=== PATIENT | female | born 1960 | race Caucasian/White ===

== ENCOUNTER 2016-09-23 09:01 | Emergency (ER) | payer BC ==
[2016-09-23 09:18] VITALS: BP 130/86; PULSE 70; RESP 16; TEMP 97.9; O2SAT 97
--- NOTE | 2016-09-23 09:40 | EDPHY ---
H & P Time Seen by Provider: 09/23/16 09:26 HPI/ROS: CHIEF COMPLAINT: Rash HISTORY OF PRESENT ILLNESS: The patient is a 56-year-old female who presents to the emergency department with rash on her back for the last 5 days. She noticed discomfort in her back and slightly painful rash. She states she has had chickenpox previously as well as zoster. She denies any recent fever. No chest pain or shortness of breath. Her rash is isolated to her back. Patient states she has been under significant stress. She is getting is having financial issues. REVIEW OF SYSTEMS: My complete review of systems is negative except as mentioned in the HPI. Past Medical/Surgical History: Includes chicken pox, zoster, asthma, fibroids Past surgical history: Uterine fibroid removal Social history: The patient is currently getting a divorce. She denies drug use. Smoking Status: Never smoked Physical Exam: 36.6, 130/86, 70, 16, 97% on room air GENERAL: Well-appearing, in no acute distress, alert. HEENT: Eyes normal to inspection, normal pharynx, no signs of dehydration. NECK: No thyromegaly, no lymphadenopathy, supple. RESPIRATORY: Clear to auscultation bilaterally, no rales, rhonchi or wheezing. CVS: Regular rate and rhythm, no rubs, murmurs, or gallops. ABDOMEN: Soft, nontender, nondistended, no organomegaly. BACK: Normal to inspection, no CVA tenderness. See skin exam. SKIN: Normal color, warm, dry. No pallor. In the patient's thoracic spine level just to the left of vertebrae there is a small group of discoloration and vesicles. This is approximately a quarter in size. There is no further rash or extension. No fluctuance. No tenderness to palpation. No discharge. EXTREMITIES: Normal appearing. NEURO/PSYCH: Alert and oriented, anxious. Constitutional: Initial Vital Signs Temperature (C) 36.6 C 09/23/16 09:14 Heart Rate 70 09/23/16 09:14 Respiratory Rate 16 09/23/16 09:14 Blood Pressure 130/86 H 09/23/16 09:14 O2 Sat (%) 97 09/23/16 09:14 O2 Delivery Mode Room Air Allergies/Adverse Reactions: azithromycin [From Zithromax] Allergy (Verified 09/23/16 09:30) cephalexin monohydrate [From Keflex] Allergy (Verified 09/23/16 09:30) clindamycin Allergy (Verified 09/23/16 09:30) meperidine HCl [From Demerol] Allergy (Verified 09/23/16 09:30) oseltamivir phosphate [From Tamiflu] Allergy (Verified 09/23/16 09:30) Home Medications: Medication Instructions Recorded Advair 09/23/16 Lexapro 09/23/16 Synthroid 09/23/16 ZYRTEC 09/23/16 Medical Decision Making ED Course/Re-evaluation: In the emergency department I discussed possible etiologies with the patient. I discussed the diagnosis of zoster. I explained the treatment course for zoster. The patient's symptoms have been present for more than 5 days. There is a single small patch of rash on her back as noted. At this time I do not feel it would be beneficial to treat the patient with antivirals and steroids. She denies pain at this time. She has had no new lesions. No systemic symptoms. I explained this to the patient. She became upset and agitated. She began to cry complaining about the cost of her ER visit. She did not want wait for discharge instructions. While we were having a discussion, I offered to help her with her anxiety. I offered cortisone cream. The patient stormed out of the emergency department. Differential Diagnosis: My differential includes but is not limited to zoster, cellulitis, abscess, dermatitis, systemic illness I do not feel the patient needs to be treated with antibiotics for cellulitis. The patient's symptoms have been greater than 72 hours. She has small lesion with no new lesions forming. I do not believe steroids or antiviral therapy will be helpful. Departure - Departure Disposition: Home, Routine, Self-Care Clinical Impression: Rash Condition: Good Instructions: Acute Rash (ED) Additional Instructions: Patient left prior to receiving her discharge instructions. Referrals: Gracia Moseley MD [Primary Care Provider] - 1 day without fail
== END 2016-09-23 09:45 | disposition home or self-care (01) ==
LOC: CED 09:01
DX: R21 Rash and other nonspecific skin eruption (principal); J45.909 Unspecified asthma, uncomplicated

== ENCOUNTER → 2017-10-15 | Outpatient (CLI) | payer OTHER | LOC: FIMAGING 15:28 | PROVIDERS: ATTEND Internal Medicine | DX: Z12.31 Encounter for screening mammogram for malignant neoplasm of breast (principal) ==

== ENCOUNTER → 2017-10-30 | Outpatient (CLI) | payer OTHER | LOC: FIMAGING 14:42 | PROVIDERS: ATTEND Internal Medicine | DX: R92.8 Other abnormal and inconclusive findings on diagnostic imaging of breast (principal) ==

== ENCOUNTER → 2018-11-12 | Outpatient (CLI) | payer OTHER | LOC: FIMAGING 12:10 ==